=== PATIENT | female | born 1985 | race Caucasian/White ===

== ENCOUNTER 2023-12-29 15:06 | Observation (INO) ==
[2023-12-29 16:12] LABS: Urine Appearance Clear; Urine Bilirubin Negative (Negative); Urine Blood Negative (Negative); Urine Color Light-Yellow; Urine Glucose 4+ (>=1000 mg/dL) (Negative); Urine Ketones 4+ (Negative); Urine Nitrite Negative (Negative); Urine Protein Trace (Negative); Urine Urobilinogen Negative (Negative); Urine pH 5.5 (5.0-8.0)
[2023-12-29] MEDS: Famotidine IV 10 MG/ML 2 ml VIAL (20 mg) IV SLOW PU ONE (16:15)
[2023-12-29] MEDS: NS 0.9% 1000 ml BAG 1,000 ML IV ONE (16:15)
[2023-12-29] MEDS: Ondansetron 4 mg VIAL 2 MG/ML 2 ml VIAL IV ONE (16:15)
[2023-12-29 16:29] LABS: ABS Lymphocytes 2.5 10^3/uL (1.0-4.8); ABS Neutrophils 13.1 10^3/uL (1.5-7.6); Hematocrit 45.1 % (35-45); Hemoglobin 15.2 g/dL (11.5-14.3); Lymphocyte % 15.1 %; Mean Corpuscular Hemoglobin 31.8 pg (27-33); Mean Corpuscular Hgb Conc 33.8 g/dL (31-36); Mean Corpuscular Volume 94.2 fL (80-97); Mean Platelet Volume 8.1 fL (7.5-11.2); Platelet Count 385 10^3/uL (150-450); Red Blood Count 4.79 10^6/uL (3.63-4.92); Red Cell Distribution Width 12.7 % (12-17); White Blood Count 16.7 10^3/uL (3.8-11.8)
[2023-12-29 16:48] LABS: ALT 16 U/L (7-52); AST 14 U/L (13-39); Albumin 4.3 g/dL (3.2-5.2); Albumin/Globulin Ratio 1.2 (1-3); Alkaline Phosphatase 114 U/L (35-149); Anion Gap 17 mmol/L (2-16); Blood Urea Nitrogen 18 mg/dL (6-24); C Reactive Protein 12.34 mg/L (<8.01); CO2 Carbon Dioxide 20 mmol/L (22-32); Calcium 9.8 mg/dL (8.6-10.3); Chloride 89 mmol/L (101-111); Globulin 3.5 g/dL (2-4); Glucose 453 mg/dL (70-100); Lipase 26 U/L (11.0-82.0); Potassium 4.1 mmol/L (3.5-5.0); Sodium 126 mmol/L (135-145); Total Bilirubin 0.8 mg/dL (0.2-1.0); Total Protein 7.8 g/dL (6.4-8.9); eGFR CKD-EPI 82.9 (>60)
[2023-12-29] MEDS: Lactated Ringers 1000 ml BAG 1,000 ML IV ONE (18:04)
[2023-12-29] MEDS: Metoclopramide 5 MG/ML VIAL (10 mg) IV ONE (18:05)
[2023-12-29 18:29] LABS: Venous Bicarbonate HCO3 19.6 mmol/L (24-28)
[2023-12-29 19:15] LABS: HCG Pregnancy < 0.60 mIU/mL
[2023-12-29 19:25] LABS: Magnesium 1.7 mg/dL (1.9-2.7)
[2023-12-29] MEDS: Magnesium Sulfate 2 gm BAG 2 GM/50 ML BAG IVPB ONE (19:51)
[2023-12-29] MEDS: Iohexol 300 (CONTRAST) 10 ML SDV IV ONE (20:33)
[2023-12-29] MEDS ORDERED: Dextrose 50% Syringe 50 ml 25 GM/50 ML SYRINGE IV PUSH PRN ×2 (21:15→22:48)
[2023-12-29] MEDS: Magnesium Sulfate IV 1GM/100ML 1 GM/100 ML BAG IV ONE (21:55)
[2023-12-29] MEDS: Nicotine PATCH 21 MG/24 HR PATCH TRANSDERM ONE (22:15)
[2023-12-29 22:46] LABS: Calcium 8.5 mg/dL (8.6-10.3); Creatinine, Serum 0.71 mg/dL (0.51-0.95); eGFR CKD-EPI 110.2 (>60)
[2023-12-29] MEDS: NS 0.9% 1000 ml BAG 1,000 ML IV SCH (23:27)
[2023-12-29] MEDS: Insulin GLARGINE 100 un/ml 10 ml VIAL SUBCUT SCH (23:28)
[2023-12-30] MEDS: Ondansetron 4 mg VIAL 2 MG/ML 2 ml VIAL IV PRN (04:29)
[2023-12-30 04:41] LABS: Hematocrit 36.5 % (35-45); Hemoglobin 12.9 g/dL (11.5-14.3); Mean Corpuscular Hemoglobin 32.6 pg (27-33); Mean Corpuscular Hgb Conc 35.4 g/dL (31-36); Mean Platelet Volume 7.7 fL (7.5-11.2); Platelet Count 344 10^3/uL (150-450); Red Blood Count 3.97 10^6/uL (3.63-4.92); Red Cell Distribution Width 12.4 % (12-17); White Blood Count 17.1 10^3/uL (3.8-11.8)
[2023-12-30 04:59] LABS: ABS Basophils 0.1 10^3/uL (0.0-0.1); ABS Eosinophils 0.1 10^3/uL (0.0-0.5); ABS Monocytes 1.8 10^3/uL (0.0-0.9); ABS Neutrophils 12.1 10^3/uL (1.5-7.6); ABS Nucleated RBC 0.01 10^3/ul; Eosinophil % 0.6 %; Lymphocyte % 17.3 %; Nucleated Red Blood Cells % 0.1 %/100WBC (0.0-0.8)
[2023-12-30 05:26] LABS: Calcium 7.9 mg/dL (8.6-10.3); Creatinine, Serum 0.57 mg/dL (0.51-0.95); Potassium 3.8 mmol/L (3.5-5.0); eGFR CKD-EPI 117.7 (>60)
[2023-12-30] MEDS: Calcium Carb (TUMS) 500 mg CHEW TAB PO PRN (08:04)
[2023-12-30 10:05] LABS: HDL Cholesterol 16.3 mg/dL
[2023-12-30] MEDS ORDERED: Nicotine PATCH 21 MG/24 HR PATCH ONE (10:33)
[2023-12-30 11:22] VITALS: BP 148/90
== END 2023-12-30 12:25 | disposition home or self-care (01) ==
LOC: EDHOLD 15:06 → ED 15:06 → EDHOLD 12-30 12:24
PROVIDERS: ADMIT Internal Medicine; ATTEND Internal Medicine